=== PATIENT | female | born 1955 | race Caucasian/White ===

== ENCOUNTER 2025-06-09 08:48 | Emergency (ER) | payer MEDICARE, OTHER, SELFPAY ==
[2025-06-09 09:01] VITALS: BP 170/93
[2025-06-09 09:14] LABS: Glucose - Point of Care 73 mg/dl (70-99)
[2025-06-09 09:21] VITALS: BMI 25.5
[2025-06-09 09:38] LABS: Hematocrit 41.4 % (37.0-47.0); Hemoglobin 13.9 g/dL (12.0-16.0); Mean Corp Hgb Conc. 33.6 g/dL (33.0-37.0); Mean Corpuscular Volume 92.2 fL (81.0-99.0); Nucleated Red Blood Cells % 0 %; Platelet Count 305 10^3/uL (130-400); Red Cell Dist. Width 13.2 % (11.5-14.5)
[2025-06-09 09:48] LABS: ALT (SGPT) 15 U/L (0-35); AST (SGOT) 21 U/L (14-36); Albumin 4.7 g/dl (3.5-5.0); Alkaline Phosphatase 64 U/L (38-126); Blood Urea Nitrogen 16 mg/dl (7-17); Calcium 9.5 mg/dl (8.4-10.2); Carbon Dioxide 27 mmol/L (22-30); Chloride 105 mmol/L (98-107); Estimated Creatinine Clearance 64 ml/min; Glucose 48 mg/dl (70-99); Potassium 4.6 mmol/L (3.5-5.1); Sodium 140 mmol/L (135-145); Total Protein 7.7 g/dl (6.3-8.2); eGFR > 60.00
[2025-06-09 09:58] LABS: Troponin I < 0.012 ng/ml
[2025-06-09 10:00] VITALS: BP 156/63
[2025-06-09 10:05] LABS: Glucose - Point of Care 96 mg/dl (70-99)
--- NOTE | 2025-06-09 10:07 | EDRN ---
Initial capillary blood sugar checked shortly after venous blood work was done. Capillary blood sugar checked again and within normal limits. Patient denies and s/s of hypoglycemia.
[2025-06-09 11:00] VITALS: BP 138/59
[2025-06-09 12:00] VITALS: BP 141/75
--- NOTE | 2025-06-09 13:18 | ED.GENMED ---
History of Present Illness
<Frankie Guardado, DO - Last Filed: 06/09/25 13:21>
General
Chief Complaint: Chest Pain
Source: patient
Time Seen by Provider: 06/09/25 08:55
History of Present Illness
History of Present Illness:
Note:
CHIEF COMPLAINT(S)
Chest pain, numbness in the left arm and face.
HISTORY OF PRESENT ILLNESS
The patient, a 70-year-old female, presented with chest pain beginning at 6:00 AM, described as originating in the left chest. The pain was not associated with radiation down the arm or neck, but the patient emphasized a distinct sensation of pain
in the heart. Eventually, this was followed by numbness spreading to the left side of the face and the left arm. The chest pain resolved after approximately 30 minutes, but the numbness persisted. This episode began when the patient woke up and was
accompanied by 'wacky neurological things.' The patient reported a past incident where they felt an 'egg crack' sensation in the past, possibly aligning with a transient ischemic attack (TIA) event. She had a history of concussions, with the initial
one occurring on April 27 and a subsequent head injury this past Thursday from hitting her head against a car door. 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 The patient experienced numbness down both legs and a
pulsating sensation from the hip, but received recommendations for vitamin B2 supplementation from her neurologist. She stopped smoking, which was once a factor during past health episodes.
EXTERNAL RECORDS REVIEWED
The patient shared reports available on her phone, which include a previous echocardiogram revealing a left bundle branch block and a subtle age-related heart murmur. Neurosurgery noted disc herniation at C3.
CHRONIC MEDICAL CONDITIONS SIGNIFICANTLY AFFECTING CARE
The patient has a history of left bundle branch block and a subtle heart murmur.
SOCIAL HISTORY
The patient has a history of smoking, but is no longer a smoker.
MEDICATIONS
The patient started vitamin B2 supplementation as recommended by her neurologist. She also mentioned a new Calcium-Magnesium supplement that includes vitamins D and K.
PHYSICAL EXAM
General: Alert, cooperative, appropriate mood and affect, no acute distress.
Skin: Warm, dry.
Head: Normocephalic, atraumatic.
Neck: Supple, trachea midline.
Eyes, Ears, Nose, Mouth and Throat: Oral mucosa moist.
Cardiovascular: Regular rate and rhythm, subtle systolic murmur detected, normal peripheral perfusion, no edema.
Respiratory: Respirations are non-labored.
Gastrointestinal: Abdomen nondistended.
Back: Normal range of motion, normal alignment.
Musculoskeletal: Normal range of motion, normal strength, although the patient reported subjective weakness.
Neurological: Alert and oriented to person, place, time, and situation. Cranial nerves intact. Normal [id number] coordination, normal pronator drift test.
Psychiatric: Cooperative, appropriate mood & affect.
PROBLEM LIST
Acute:
- Chest pain
- Neurological symptoms of numbness in the left arm and face
Chronic:
- Left bundle branch block
- Subtle heart murmur
PLAN
1. Repeat head CT scan to evaluate for potential stroke or additional head injury complications.
2. Perform laboratory tests to assess cardiac function.
3. Review available echocardiogram and neurosurgery reports from the patients phone to gather more information.
4. 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
DIFFERENTIAL DIAGNOSIS
The Differential Diagnosis includes, in no particular order and is not limited to:
- Myocardial infarction
- Transient ischemic attack (TIA)
- Stroke
- Concussion sequelae
- Cervical radiculopathy
- Peripheral neuropathy
- Anxiety-related syndrome
- Thoracic outlet syndrome
- Cardiac arrhythmias
- Angina pectoris
EKG
My independent EKG interpretation is:
- Time of EKG: [Provide specific time if available]
- Rhythm: Normal sinus rhythm
- Notable Intervals: Presence of left bundle branch block (LBBB)
- Abnormalities: Occasional premature ventricular contractions (PVCs)
- No Q-wave or ST segment changes observed
- Patient history: Known left bundle branch block
Disposition:
SUMMARY OF ENCOUNTER
A 70-year-old female presented with chest pain and numbness in the left arm and face. These symptoms began following a concussion and resolved after 30 minutes, although numbness persisted. CT head scan showed no acute intracranial abnormalities.
Initial troponin tests were negative, with a repeat test pending. An EKG confirmed a left bundle branch block, consistent with the patients history. Chemistries showed hypoglycemia, although bedside glucose checks were normal. The patient was deemed
safe for discharge with recommendations for outpatient follow-up upon pending negative repeat troponin results.
ASSESSMENT
Acute chest pain and neurological symptoms likely not indicative of a stroke but possibly related to recent concussion or a transient ischemic attack with no acute findings on CT. Hypoglycemia was noted but without a clinical correlation.
PLAN
Discharge the patient with instructions to follow up as an outpatient for continued observation and management. Advise monitoring symptoms and ensure regular follow-ups with neurology and cardiology for ongoing care.
INDEPENDENT REVIEW OF LABS AND INTERPRETATION OF TESTS
My independent review of the CT head shows no acute intracranial abnormality.
My independent EKG interpretation is a left bundle branch block.
MEDICATION RECONCILIATION
Prescription medication was not prescribed. Continue current regimen including vitamin B2 and Calcium-Magnesium supplement.
MEDICAL DECISION MAKING
- Complexity of Data Reviewed: Chronic conditions affecting care include left bundle branch block and subtle heart murmur. Differential diagnosis included myocardial infarction, transient ischemic attack, stroke, concussion sequelae, cervical
radiculopathy, peripheral neuropathy, anxiety-related syndrome, thoracic outlet syndrome, cardiac arrhythmias, and angina pectoris.
- Data:
Category 1
Tests and documents reviewed: CT head scan and EKG.
Category 2
My independent interpretation of CT head indicated no acute abnormalities; EKG confirmed known left bundle branch block.
- Risk:
Consideration of Admission/Observation: Escalation of care including admission/observation was considered given the complexity and risk of the patients presenting complaint, exam findings, and their underlying comorbidities. However, ultimately, the
patient is deemed safe for outpatient management with close follow-up. Work-up did not reveal any acute life/organ threatening processes, symptoms are well controlled upon reevaluation, examination is reassuring, vitals are stable, patient agreeable
with discharge, reliable for follow-up.
DIAGNOSIS
Chest pain, unspecified (ICD-10: R07.9)
Concussion without loss of consciousness, initial encounter (ICD-10: S06.0X0A)
Left bundle branch block (ICD-10: I44.7)
Phy Exam
<Frankie Guardado DO - Last Filed: 06/09/25 13:21>
Physical Exam
Physical Exam:
.
Scores
<Wang Spain PA-C - Last Filed: 06/09/25 15:28>
Heart Score for Chest Pain Patients
STEMI patient?: No
History: Slightly or Non-Suspicious
ECG: Normal
Age: >/= 65 years
Risk Factors: 1 or 2 Risk Factors
Troponin: </= Normal Limit
Heart Score for Chest Pain Patients: 3
Heart Score Risk: 2.5% MACE over next 6 weeks
Course
<Frankie Guardado DO - Last Filed: 06/09/25 13:21>
Orders/Labs/Results
Orders:
Orders
06/09/25
Electrocardiogram (*1) Stat
Comment: DONE
06/09/25 08:51
Electrocardiogram (*1) Urgent
Reason for Study: Chest Pain
06/09/25 08:52
EKG- Treatment ONCE
06/09/25 09:13
Complete Blood Count/With Diff Urgent
Comprehensive Metabolic Panel Urgent
Troponin I Urgent
06/09/25 09:41
CT Head W/o Iv Contrast Urgent
Comment:
Reason For Exam: L sided face/arm numbness, recent head injury
06/09/25 13:01
Troponin I Urgent
06/09/25 13:18
CR Chest - 2 Views Urgent
Comment:
Reason For Exam: L cp
Abnormal Lab Results
06/09/25
09:13
Eosinophils % 10.3 H %
(0-6)
Glucose 48 L* mg/dl
(70-99)
06/09/25 09:13
06/09/25 09:13
Vital Signs
Initial and Last Documented VS:
Initial Vital Signs
Temp Pulse Resp BP Pulse Ox
98.1 F 68 14 170/93 100
06/09/25 09:01 06/09/25 09:01 06/09/25 09:01 06/09/25 09:01 06/09/25 09:01
Last Documented Vital Signs
Temp Pulse Resp BP Pulse Ox
98.1 F 56 17 141/75 96
06/09/25 09:01 06/09/25 12:45 06/09/25 12:45 06/09/25 12:00 06/09/25 13:18
<Wang Spain PA-C - Last Filed: 06/09/25 15:28>
Orders/Labs/Results
Orders:
Orders
06/09/25
Electrocardiogram (*1) Stat
Comment: DONE
06/09/25 08:51
Electrocardiogram (*1) Urgent
Reason for Study: Chest Pain
06/09/25 08:52
EKG- Treatment ONCE
06/09/25 09:13
Complete Blood Count/With Diff Urgent
Comprehensive Metabolic Panel Urgent
Troponin I Urgent
06/09/25 09:41
CT Head W/o Iv Contrast Urgent
Comment:
Reason For Exam: L sided face/arm numbness, recent head injury
06/09/25 13:01
Troponin I Urgent
06/09/25 13:18
CR Chest - 2 Views Urgent
Comment:
Reason For Exam: L cp
Abnormal Lab Results
06/09/25
09:13
Eosinophils % 10.3 H %
(0-6)
Glucose 48 L* mg/dl
(70-99)
06/09/25 09:13
06/09/25 09:13
Vital Signs
Initial and Last Documented VS:
Initial Vital Signs
Temp Pulse Resp BP Pulse Ox
98.1 F 68 14 170/93 100
06/09/25 09:01 06/09/25 09:01 06/09/25 09:01 06/09/25 09:01 06/09/25 09:01
Last Documented Vital Signs
Temp Pulse Resp BP Pulse Ox
98.1 F 56 17 141/75 96
06/09/25 09:01 06/09/25 12:45 06/09/25 12:45 06/09/25 12:00 06/09/25 13:18
<Frankie Guardado DO - Last Filed: 06/09/25 13:21>
*Pulse Oximetry
SaO2: 96
Oxygen Mode of Delivery: Room air
Patient hypoxic: no
*Citizen Participation Specialist Interpretation
Rate: normal
Interpretation: normal
*Critical Care Note
Total Time (30-74mins, 75-104mins- exclusive of procedures): Not Applicable
<Wang Spain PA-C - Last Filed: 06/09/25 15:28>
*Radiology
Radiology exam reviewed: preliminary read by ED provider (Negative chest x-ray)
<Wang Spain PA-C - Last Filed: 06/09/25 15:28>
Patient Management
Escalation/DeEscalation of care consider admission/obs:
Patient received in signout pending repeat troponin and then chest x-ray. Repeat troponin is negative and chest x-ray is within normal limits. Patient will follow-up with primary care provider. Aware of return precautions to the ER.
ED Attending Note
<Frankie Guardado DO - Last Filed: 06/09/25 13:21>
-
Portions of this chart may have been created with voice recognition software.� Occasional wrong word or��sound alike� substitutions may have occurred due to the inherent limitations of voice recognition software.
Discharge Plan
Departure
Patient Disposition: Home (Routine Discharge)
Date of Disposition: 06/09/25
Time of Disposition: 14:11
Patient with high blood pressure during this ER visit?: Yes
Discharge Problem:
Chest pain
Instructions: Chest Pain PCP Follow Up
Prescriptions:
No Action
aspirin 81 mg Tablet,Delayed Release (Dr/Ec)
324 mg PO DAILYPRN PRN (Reason: CHEST PAINS)
cyproheptadine 4 mg Tablet
4 mg PO HS
olmesartan [Benicar] 5 mg Tablet
5 mg PO DAILYPRN PRN (Reason: HIGH BLOOD PRESSURE)
cyclosporine [Restasis] 0.05 % Dropperette
1 drp BOTH EYES Q12H
ibandronate 150 mg Tablet
150 mg PO MONTHLY
omega [id number]-uga-zdq-fish oil [Fish Oil] 1,000 (120-180) mg Capsule
1 cap PO DAILY
calcium [id number] kylee 133 mg calcium -133 unit-67 mg Capsule
1 cap PO DAILY
Referrals:
Sita Gutierrez DO [Family Provider, Family Practice]
Activity Restrictions/Additional Instructions:
Sensory changes
Please see your doctor in the next 3 to 5 days for follow-up and reevaluation. Please also see cardiology in the next 1 week for follow-up. Return immediately for chest pain, shortness of breath, coughing up blood, weakness of any kind or any
other concerns.
Interventions
Interventions:
*Risk Screen - Suicide Last Done: 06/09/25 09:01
*General Assessment Last Done: 06/09/25 09:01
*Neglect/Abuse Screening Last Done: 06/09/25 09:01
*ED- Fall Risk Assessment Last Done: 06/09/25 09:01
*ED COVID-19 Vaccine History Last Done: 06/09/25 09:01
*Nursing Disposition Last Done: 06/09/25 14:27
ED- Cardiac Assessment Last Done: 06/09/25 09:00
Discharge Date and Time
Discharge Date/Time: 06/09/25 14:42
Print Language: UPPER SORBIAN
[2025-06-09 13:38] LABS: Troponin I < 0.012 ng/ml
== END 2025-06-09 14:42 | disposition home or self-care (01) ==
LOC: EMR 08:48
PROVIDERS: EMERGENCY PHYSICIAN Emergency Medicine; FAMILY PHYSICIAN Family Medicine
DX: R07.89 Other chest pain (principal); S06.0X0A Concussion without loss of consciousness, initial encounter; W22.8XXA Striking against or struck by other objects, initial encounter; R20.0 Anesthesia of skin; Z87.891 Personal history of nicotine dependence; I44.7 Left bundle-branch block, unspecified; Z86.73 Personal history of transient ischemic attack (TIA), and cerebral infarction without residual deficits
CPT/HCPCS: 99284; 70450; 71046; 80053; 82962; 84484; 85025; 93005

== ENCOUNTER → 2025-06-16 08:37 | Outpatient (REF) | payer MEDICARE, OTHER, SELFPAY ==
[2025-06-16 10:08] LABS: INR 0.93; PT 12.8 Sec (11.4-14.6)
[2025-06-16 10:09] LABS: APTT 29.1 Sec (23.4-35.0)
[2025-06-16 10:33] LABS: HDL Cholesterol 83 mg/dl; LDL Cholesterol, Calculated 127 mg/dl; Very Low Density Lipoprotein 13 mg/dl (0-30)
[2025-06-16 11:05] LABS: TSH 4.77 uIU/ml (0.47-4.68)
== END ==
LOC: REG 08:37
PROVIDERS: ATTENDING PHYSICIAN Internal Medicine; FAMILY PHYSICIAN Family Medicine
DX: R07.9 Chest pain, unspecified (principal); I44.7 Left bundle-branch block, unspecified; I49.3 Ventricular premature depolarization; Z87.891 Personal history of nicotine dependence; I50.21 Acute systolic (congestive) heart failure
CPT/HCPCS: 36415; 80061; 84439; 84443; 85610; 85730

== ENCOUNTER 2025-06-23 08:49 | Day surgery (SDC) | payer MEDICARE, OTHER, SELFPAY ==
[2025-06-23] VITALS (12 sets, daily range): BP systolic 125–157; BP diastolic 55–94; BMI 25.1
[2025-06-23] MEDS: NSS 175 ML IV (09:52)
--- NOTE | 2025-06-23 17:14 | ITS.CL.PN ---
Sports Team Manager - Procedure Note
Procedure
Procedure Note:
CARDIAC CATHETERIZATION REPORT
Date of Procedure: 06/23/2025
Referring: Dr. Chad Quiles MD
Indication: newly diagnosed heart failure
PROCEDURE(S)
1. left heart catheterization
2. coronary angiography
ACCESS: 6F right radial artery (closure: radial band)
CATHETERS
1. 6F JR4
2. 6F JL3.5
MODERATE SEDATION: 25 minutes of moderate sedation was utilized. An independent medical editor was present to assist with and help manage the patient's level of consciousness and physiologic status.
HEMODYNAMIC DATA
LV 158/8 (EDP 12) mmHg
AO 160/77 (mean 109) mmHg
CORONARY ANGIOGRAPHY
Dominance: right
LM: large normal
LAD: large vessel giving rise to a small ramus/OM1, small D2, and small D3 before wrapping around the apex. There are trivial luminal irregularities only.
LCx: large vessel giving rise to a large OM1 and small LPL branch. There are trivial luminal irregularities only.
RCA: large vessel giving rise to a moderate caliber RPDA, small RPL1, and moderate caliber RPL2. There are trivial luminal irregularities only.
RADIATION: dose 112 mGy; DAP 6.8 Gy*cm2; fluoroscopy time 2.1 min
CONCLUSIONS
1. Trivial luminal irregularities only in a right dominant system
2. Normal LV filling pressure and no aortic stenosis
RECOMMENDATIONS
1. Primary prevention of coronary artery disease
2. Guideline directed medical therapy for nonischemic cardiomyopathy
Copy to: Dr. Chad Quiles MD (loss prevention lead); Dr. Sita Gutierrez DO (PCP)
Signed: Solitario Vail MD, PhD
== END 2025-06-23 14:50 | disposition home or self-care (01) ==
LOC: CATH 08:49
PROVIDERS: ATTENDING PHYSICIAN Student in an Organized Health Care Education/Training Program; FAMILY PHYSICIAN Family Medicine; OTHER PHYSICIAN Internal Medicine
DX: I50.9 Heart failure, unspecified (principal); I42.8 Other cardiomyopathies; I44.7 Left bundle-branch block, unspecified; Z87.891 Personal history of nicotine dependence; Z79.899 Other long term (current) drug therapy; I10 Essential (primary) hypertension
CPT/HCPCS: 99152; 99153; 93458; C1894; Q9967